=== PATIENT | female | born 1970 | race Caucasian/White ===

== ENCOUNTER 2018-11-18 06:28 | Emergency (ER) | payer OTHER ==
[~2018-11-18] VITALS: Ht 160 cm; Wt 84.4 kg
[2018-11-18 06:32] VITALS: BP 190/105
[2018-11-18] MEDS ORDERED: ACET-3068 PO (07:12)
[2018-11-18] MEDS ORDERED: NEOM10DR45 OT (07:12)
[2018-11-18] MEDS ORDERED: AMOX-580 PO (07:12)
[2018-11-18] MEDS ORDERED: ibuprofen 200mg tablet PO ONE (07:15)
[2018-11-18] MEDS ORDERED: amox tr/potassium clavulanate 875/125mg TAB PO ONE (07:15)
== END 2018-11-18 07:25 | disposition home or self-care (01) ==
LOC: ER 06:29
DX: H66.92 Otitis media, unspecified, left ear (principal); H60.92 Unspecified otitis externa, left ear; F10.99 Alcohol use, unspecified with unspecified alcohol-induced disorder; Z79.899 Other long term (current) drug therapy; Y90.9 Presence of alcohol in blood, level not specified
CPT/HCPCS: 99283

== ENCOUNTER 2021-09-17 08:48 | Outpatient (CLI) | payer OTHER ==
[~2021-09-17] VITALS: Ht 191.8 cm; Wt 93.4 kg
[2021-09-17 09:12] LABS: TOTAL HEMOGLOBIN 13.8 G/dl (12.0-16.0)
[2021-09-17] MEDS ORDERED: albuterol 2.5 MG/3 ML nebule NEB ONE (09:50)
== END 2021-09-17 23:59 | disposition home or self-care (01) ==
LOC: RT 08:48
PROVIDERS: ATTEND Nurse Practitioner Family
DX: J45.998 Other asthma (principal); Z79.899 Other long term (current) drug therapy
CPT/HCPCS: 85018; 94060; 94727; 94729; 94760